=== PATIENT | female | born 1935 | race Caucasian/White ===

== ENCOUNTER 2017-04-27 08:11 | Emergency (ER) | payer MEDICARE, BC ==
--- NOTE | 2017-04-27 08:53 | ERNOTE ---
Back Pain ER HPI Time Seen by Provider: 04/27/17 08:47 Source: patient Exam Limitations: no limitations Immunizations: IMMUNIZATION HX Immunizations Up to Date Yes History of Influenza Vaccine Yes Hx Pneumococcal Vaccination Yes Allergies/Adverse Reactions: Allergies No Known Allergies Allergy (Verified 04/27/17 08:42) Home Medications: HOME MEDICATIONS Amlodipine Besylate [Norvasc] 2.5 mg PO DAILY 05/04/14 [Last Taken Unknown] Aspirin 325 mg PO PRN PRN 05/04/14 [Last Taken Unknown] Aspirin/Acetaminophen/Caffeine [Excedrin Migraine Caplet] 2 tab PO DAILY [Last Taken Unknown] Bisoprol/Hydrochlorothiazide [Ziac 10/6.25MG] 1 tab PO DAILY 05/04/14 [Last Taken Unknown] Calcium Citrate/Vitamin D3 [Calcium Citrate with D Tablet] 4 tab PO DAILY [Last Taken Unknown] Dorzolamide/Timolol/Pf [Cosopt Pf Eye Drops] 1 drop IO BID 05/04/14 [Last Taken Unknown] Ezetimibe [Zetia] 10 mg PO DAILY 05/04/14 [Last Taken Unknown] Fe Ps Cmplx/Cyanocobalamin/FA [Niferex-150 Forte] 1 cap PO DAILY 05/04/14 [Last Taken Unknown] Glucosam/Chondroit/C/Manganese [Cosamin Ds Capsule] 2 cap PO DAILY 05/04/14 [ Last Taken Unknown] Levothyroxine Sodium [Synthroid] 25 mcg PO DAILY 05/04/14 [Last Taken Unknown] Lutein 10 mg PO DAILY 05/04/14 [Last Taken Unknown] Multivitamins [Multivitamin Esthela] 1 cap PO DAILY 05/04/14 [Last Taken Unknown] Attica-3 Fatty Acids [Attica-3] 2 tab PO DAILY 05/04/14 [Last Taken Unknown] Simvastatin [Zocor] 20 mg PO HS 05/04/14 [Last Taken Unknown] Sulindac 200 mg PO BID 05/04/14 [Last Taken Unknown] Vit C/E/Zn/Coppr/Lutein/Zeaxan [Preservision Areds 2 Softgel] 2 cap PO DAILY [Last Taken Unknown] Ibuprofen [Motrin] 400 mg PO Q6H PRN #30 tab 04/27/17 [Last Taken Unknown] Narrative: This patient presents to the emergency room because over the past week she's had some weakness and pain in her legs size and hip areas bilaterally which are the symptoms she had before she had her back surgery in 2004 and 2008 respectively. She denies any back pain whatsoever at all. Review of Systems - Review of Systems Constitutional: Present: no symptoms reported EYE: Present: no symptoms reported ENT: Present: no symptoms reported Respiratory: Present: no symptoms reported Cardiology: Present: no symptoms reported Gastrointestinal/Abdominal: Present: no symptoms reported Genitourinary: Present: no symptoms reported Musculoskeletal: Present: See HPI Skin: Present: no symptoms reported - Patient's Past Medical History Patient History - Medical: No pertinent hx Patient History - Cardiac/Respiratory: No pertinent hx Patient History - Cancer: No Hx of Cancer Patient History - Surgical Procedures: Back Surgery Patient History - Other: None - Social History Living Situations: home Abuse History: No History of abuse Psych History: No pertinent hx Smoking Status: Never smoker Have you smoked in the past 12 months: No Do you dip or chew tobacco: No Alcohol Use: none - Immunizations Immunizations Up to Date: Yes Hx Pneumococcal Vaccination: Yes History of Influenza Vaccine: Yes Physical Exam - Physical Exam General Appearance: Present: wd/wn, alert, no apparent distress Head Exam: Present: normal inspection, no evidence of injury Respiratory: Present: no respiratory distress, normal breath sounds, no accessory muscle use, chest nontender, lungs clear Extremity Exam: Present: normal inspection, normal range of motion, other - examination of the patient's lower extremities is basically within normal limits patient able to walk without any limp or ataxia she does use a cane as she feels that that would be helpful reflexes are intact strength is normal bilaterally. ED Progress - Vital Signs Patient's Vital Signs:: I have reviewed the patient's vital signs. Vital Signs: Vital Signs 04/27/17 08:36 Temperature 36.6 C Pulse Rate 62 Respiratory 18 Rate O2 Sat by Pulse 98 Oximetry - Progress/Reassessment Chief Complaint: Back Pain Plan - Plan Plan: Patient is describing a progressive weakness and aching in both legs she does not have any history of trauma no imaging studies are indicated at this time we' ll treat the patient's pain and discomfort with 400 mg ibuprofen and have her follow up with her primary care doctor and subsequently Ortho-Est indicated. Departure Clinical Impression: Leg pain Qualifiers: Laterality: bilateral Qualified Code(s): M79.604 - Pain in right leg; M79.605 - Pain in left leg; M79.605 - Pain in left leg - Departure Disposition: Home self-care Condition: Good Instructions: Hip Pain Referrals: Mihai Mendoza DO [Primary Care Provider] - Prescriptions: Ibuprofen [Motrin] 400 mg PO Q6H PRN #30 tab PRN Reason: Pain
== END 2017-04-27 09:10 | disposition home or self-care (01) ==
LOC: ER 08:11
DX: M79.605 Pain in left leg (principal); M79.604 Pain in right leg